=== PATIENT | male | born 1960 | race Caucasian/White ===

== ENCOUNTER 2020-08-06 11:11 | Emergency (ER) | payer OTHER ==
[2020-08-06] MEDS ORDERED: Sodium Chloride 0.9% 50 ML SDV FLUSH ONE (11:52)
[2020-08-06] MEDS ORDERED: Iopamidol 612 MG/ML 100 ML Bottle IV SCH (12:00)
--- NOTE | 2020-08-06 14:00 | CT ---
Date of Service: 08/06/20 Clinical Data: abdominal soarness UNENHANCED ABDOMEN AND PELVIC CT: Multislice acquisition through the abdomen and pelvis without IV or oral contrast was performed. No priors. There is a 5 mm pleural-based nodule in the left costophrenic angle posteriorly. The lung bases are otherwise clear. The heart size is normal. The liver is normal size. There is decreased attenuation of the liver adjacent to the falciform ligament consistent with focal fatty infiltration. No other focal hepatic lesions. The gallbladder appears normal. No gallstones. The spleen appears normal. 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 The pancreas appears normal. No pancreatic duct dilatation. The right and left adrenals appear normal. The right and left kidneys appear normal. No nephrocalcinosis or nephrolithiasis. No hydronephrosis or hydroureter. No evidence of ureterolithiasis. The bladder is partially fluid filled. It appears normal. There is mural thickening involving the duodenal bulb and first and second portions of the duodenum. There is mild adjacent fat stranding. Duodenitis is suspected. There is diverticulosis of the descending and sigmoid colon. No evidence of diverticulitis. No free air. There is a small amount of free fluid within the pelvis. No ydoinn9s loops of bowel. No adenopathy. No aortic aneurysm. There is a small fat-containing umbilical hernia. There are bilateral fat- containing inguinal hernias. There is degenerative disk disease at multiple levels in the lumbar spine. There is grade 2 anterolisthesis of L5 on S1. No other significant findings. IMPRESSION: Duodenal wall thickening with adjacent fat stranding consistent with duodenitis. Multiple other findings as discussed above. MTDD
--- NOTE | 2020-08-06 14:04 | CR ---
DATE OF SERVICE: 08/06/2020 CLINICAL DATA: Vomiting. PA AND LATERAL CHEST: The heart size is normal. There is calcification of the aortic arch. The lungs are clear. No pneumothorax. No pleural effusions. No evidence of acute intrathoracic disease. [id number] MTDD
--- NOTE | 2020-08-07 02:32 | ER ---
REASON FOR EMERGENCY ROOM VISIT: Abdominal pain. HISTORY: This is a 60-year-old man, who from [place], [place], was visiting the area. For the past 2 or 3 days, states that he has been lifting sawed and lifting other heavy objects including the boat in preparation for this fishing trip. Three days ago after lifting various heavy objects, he developed some low back pain, which was not out of the ordinary for him. However, he subsequently developed upper abdominal pain along with this beginning on Monday and thought that it was maybe due to "sore muscles." Two days ago, he began experiencing some heartburn and early satiety after eating meals. He also over the last 24 hours, experienced some increased upper abdominal pain radiating to the back bilaterally. He did experience nausea and vomiting x1 yesterday, but then vomited again this morning. He states that his back pain he feels much better today, but his abdominal pain is still troublesome, especially in light of his vomiting. He experiences vomiting after [facility] His vomiting was yellow in color. His abdominal pain actually felt better this morning than it was yesterday as well, but the vomiting was somewhat worrisome, so he decided to come in and be evaluated. He has not had any fever or chills. He denies any chest pain or exertional chest pain. PAST MEDICAL HISTORY: 1. Hernia repair. 2. Biceps tendon repair. 3. Several operations on his right leg. 4. Hypertension. 5. History of MRSA. ALLERGIES: NONE TO MEDICATIONS. REVIEW OF SYSTEMS: Pertinent positives and negatives as listed in the HPI. PHYSICAL EXAMINATION: GENERAL: Reveals an alert, pleasant man, in no acute distress. VITAL SIGNS: He is afebrile. Heart rate is 68, blood pressure 150/96, O2 sats 98% on room air. HEENT: No scleral icterus is noted. Oropharynx is normal. NECK: No adenopathy. Supple. CHEST: Clear to auscultation with no wheezes, rhonchi, or rales and good air exchange bilaterally. CARDIAC: Regular rate without murmur. ABDOMEN: Obese, soft, and nontender to deep and/or superficial palpation. There is no percussion tenderness, guarding, or rebound. No hepatosplenomegaly is noted. No other abdominal masses are noted. I cannot detect any hernias. EXTREMITIES: Normal pulses. No edema. No deformities. LABORATORY DATA: We did obtain a CBC and a chemistry 8 panel on him. Both of which were normal. We could not get a CMP to look at liver enzymes nor could we obtain an amylase due to both machines not working at this time. I went ahead and obtained a CT scan of his abdomen, which was negative for stones or biliary tract disease. The pancreas appeared normal. There were no abnormalities noted except for some thickening in the region of the duodenum, possibly indicating the potential for some duodenal ulcer or conceivably even some distal gastritis. No other abnormalities were noted. There was no fluid or free air. IMPRESSION: Upper abdominal pain, possible gastritis versus duodenal ulcer. PLAN: He was advised to get omeprazole over the counter and take this twice a day as well as antacids in between, and most importantly that he should follow up with his personal doctor when he returns home following this weekend. Should any problems or questions arise, he certainly could give us a call or return for re-evaluation. I did explain the possibility of ulcer disease to him and treatment and he understands the importance of followup. All questions were answered. He understands and agrees. EUGENIO/MK /[id number]
== END 2020-08-06 13:45 | disposition home or self-care (01) ==
LOC: LB.ED 11:11
DX: R10.10 Upper abdominal pain, unspecified (principal); I10 Essential (primary) hypertension
CPT/HCPCS: 36415; 71046; 74176; 80048; 81001; 85025; 99284-25